=== PATIENT | female | born 1995 | race Caucasian/White ===

== ENCOUNTER 2020-10-24 14:35 | Day surgery (SDC) | payer OTHER ==
[2020-10-24] MEDS ORDERED: Glucagon,Human Recombinant 1 MG Vial IVPUSH ONE (14:51)
[2020-10-24] MEDS ORDERED: Ondansetron 4 MG/2 ML SDV IVPUSH ONE (14:51)
--- NOTE | 2020-10-24 15:14 | EDM.PDOC ---
ED HPI GENERAL MEDICAL PROBLEM - General Chief Complaint: ENT Problem Stated Complaint: DIFFICULTY SWALLOWING,CHEST PRESSURE Time Seen by Provider: 10/24/20 14:48 - History of Present Illness INITIAL COMMENTS - FREE TEXT/NARRATIVE: CHIEF COMPLAINT(S): Trouble swallowing HISTORY OF PRESENT ILLNESS: This is a 21-year-old woman with a past medical history of prior esophageal impaction who comes to the emergency department with a chief complaint of trouble swallowing. The patient states that approximately 23 hours ago while she was eating some roast she felt to get stuck in her throat. She states that prior to this in her teens she was able to pass these impactions with just swallowing water however it did not solve the problem this time. She states that she has tried [place], soda and white bread without any relief. She states that she is not able to swallow anything and everything keeps coming back up. She states that she she feels like it is closer to her stomach but she is experiencing some discomfort in the area. She denies any hematemesis, hemoptysis, shortness of breath or chest pain. Last known meal was approximately 23 hours ago. She denies any fevers or chills, abdominal pain. REVIEW OF SYSTEMS: Constitutional: Denies fever, chills. Eyes: Denies eye pain Ears, Nose, Mouth, & Throat: Positive for trouble swallowing. Denies earache, sore throat Cardiovascular: Denies chest pain Respiratory: Denies shortness of breath Gastrointestinal: Denies abdominal pain, nausea, vomiting, diarrhea, hematochezia. Genitourinary: Denies hematuria Skin:Denies a rash MSK: Denies joint pain Neurological: Denies blurred vision, numbness, tingling, weakness Psychiatric: Denies depression PAST MEDICAL HISTORY: As per history of present illness and as reviewed below otherwise noncontributory. SURGICAL HISTORY: As per history of present illness and as reviewed below otherwise noncontributory. SOCIAL HISTORY: As per history of present illness and as reviewed below otherwise noncontributory. FAMILY HISTORY: As per history of present illness and as reviewed below otherwise noncontributory. EXAMINATION OF ORGAN SYSTEMS/BODY AREAS: Constitutional: Blood pressure was 124/70, heart rate 80, respiratory 16 with an oxygen saturation 98% on room air. Temperature 36.4. General: Overall well-appearing woman who is in no acute distress Psychiatric: Appropriate mood and affect. Eyes: No scleral icterus or conjunctival erythema ENMT: Moist mucous membranes. No pharyngeal erythema uvula midline. No posterior pharyngeal swelling or erythema. The patient is spitting up mucus. Cardiovascular: Regular, rate, and rhythm. No gallops, murmurs, or rubs. Bilateral upper extremity pulses symmetric and intact. No peripheral edema. No JVD. Respiratory: Lungs clear to auscultation bilaterally. No wheezes, rales, or rhonchi. Gastrointestinal: Soft, non-tender, non-distended. Normoactive bowel sounds Genitourinary: No suprapubic tenderness Musculoskeletal: Normal range of motion. Skin: No lesions or abrasions. Neurological: Alert, GCS 15 MEDICAL DECISION MAKING AND COURSE IN THE ED WITH INTERPRETATION/REVIEW OF DIAGNOSTIC STUDIES: This is a 23-year-old and with a prior past medical history of food impaction who comes to the emergency department with food impaction and after approximately 23 hours who has tried multiple different modalities at home. At this time we will provide the patient with 1 mg of IV glucagon and Zofran. We will also trial some soda here and obtain a Covid swab and a test. I did contact Dr. Man given that the esophageal bolus has been there for approximately 23 hours and while awaiting hCG and Covid we will attempt conservative management. After attempting Coca-Cola the patient continued to spit up the Coca-Cola cola that we administered. She did not feel any better. The glucagon did not seem to pass the food bolus. Therefore I contacted Dr. Man who stated he would come into the emergency department to evaluate the patient. Laboratory: hCG is negative, Covid is negative Dr. Man came and evaluated the patient the patient will be taken to the operating room for an EGD DISPOSITION: The patient admitted to same-day surgery CONDITION: Fair PROCEDURES: None FINAL IMPRESSION(S)/DIAGNOSES: 1. Acute esophageal food bolus/impaction Hima Paz M.D. - Related Data Allergies Allergy/AdvReac Type Severity Reaction Status Date / Time No Known Allergies Allergy Verified 10/24/20 14:59 Home Meds: Home Meds . [No Known Home Meds] 10/24/20 [History] Past Medical History - Past Health History Medical/Surgical History: Denies Medical/Surgical History - Infectious Disease History Infectious Disease History: Reports: None Social & Family History - Family History Family Medical History: No Pertinent Family History - Caffeine Use Caffeine Use: Reports: None - Recreational Drug Use Recreational Drug Use: No ED ROS GENERAL - Review of Systems Review Of Systems: See Below ED EXAM, GENERAL - Physical Exam Exam: See Below Course - Vital Signs Last Recorded V/S: Last Vital Signs Temp 36.4 C 10/24/20 14:47 Pulse 86 10/24/20 15:35 Resp 18 10/24/20 15:35 BP 120/86 10/24/20 15:35 Pulse Ox 98 10/24/20 15:35 - Orders/Labs/Meds Orders: Active Orders 24 hr Category Date Time Status Admission Status [Patient Status] [ADT] Stat ADT 10/24/20 17:04 Active Verify Patient Consent Obtain [RC] ASDIRECTED Care 10/24/20 17:01 Active Labs: Laboratory Tests 10/24/20 10/24/20 Range/Units 14:45 15:02 HCG, Qual NEGATIVE (NEG) SARS-CoV-2 RNA (NEETA) NEGATIVE (NEGATIVE) Meds: Medications Discontinued Medications Generic Name Dose Route Start Last Admin Trade Name Freq PRN Reason Stop Dose Admin Glucagon 1 mg 10/24/20 14:51 10/24/20 15:10 Glucagon,Human Recombinant 1 Mg Vial IVPUSH 10/24/20 14:52 1 mg ONETIME ONE Administration Ondansetron HCl 4 mg 10/24/20 14:51 10/24/20 15:09 Ondansetron 4 Mg/2 Ml Sdv IVPUSH 10/24/20 14:52 4 mg ONETIME ONE Administration Departure - Departure Time of Disposition: 17:04 Disposition: Still A Patient 30 Condition: Fair Clinical Impression: Food impaction of esophagus - Discharge Information Referrals: PCP,None [Ordering Only Provider] - Forms: ED Department Discharge Sepsis Event Note (ED) - Evaluation Sepsis Screening Result: No Definite Risk - Focused Exam Vital Signs: Vital Signs Temp Pulse Resp BP Pulse Ox 10/24/20 15:35 86 18 120/86 98 10/24/20 14:47 36.4 C 80 16 124/70 98 - My Orders Last 24 Hours: My Active Orders 10/24/20 17:04 Admission Status [Patient Status] [ADT] Stat - Assessment/Plan Last 24 Hours: My Active Orders 10/24/20 17:04 Admission Status [Patient Status] [ADT] Stat
[2020-10-24] MEDS ORDERED: fentaNYL 50 MCG/ML SDV IVPUSH ONE (17:22)
--- NOTE | 2020-10-24 17:39 | PCM.PREANE ---
Preanesthetic Assessment - Procedure Proposed Procedure: EGD - Anesthesia/Transfusion/Family Hx Anesthesia History: Prior Anesthesia Without Reaction Family History of Anesthesia Reaction: No Intubation History: Intubation other than for Surgery in past - Review of Systems General: No Symptoms Pulmonary: Other (+ smoker Childhood Asthma) Cardiovascular: No Symptoms Gastrointestinal: Difficulty Swallowing (Food Bolus), Nausea, Other Neurological: No Symptoms Other: Reports: Anxiety - Physical Assessment NPO Status Date: 10/24/20 NPO Status Time: 14:00 Vital Signs: Last Vital Signs Temp 36.4 C 10/24/20 14:47 Pulse 86 10/24/20 15:35 Resp 18 10/24/20 15:35 BP 120/86 10/24/20 15:35 Pulse Ox 98 10/24/20 15:35 Height: 1.68 m Weight: 68.039 kg ASA Class: 2E Mental Status: Alert & Oriented x3 Airway Class: Mallampati = 2 Dentition: Reports: Normal Dentition Thyro-Mental Finger Breadths: 3 Mouth Opening Finger Breadths: 3 ROM/Head Extension: Full Lungs: Clear to Auscultation Cardiovascular: Regular Rate - Lab Values: Laboratory Last Values HCG, Qual NEGATIVE (NEG) 10/24/20 14:45 SARS-CoV-2 RNA (NEETA) NEGATIVE (NEGATIVE) 10/24/20 15:02 - Allergies Allergies/Adverse Reactions: Allergies Allergy/AdvReac Type Severity Reaction Status Date / Time No Known Allergies Allergy Verified 10/24/20 14:59 - Blood Blood Available: No Product(s) Available: None - Anesthesia Plan Pre-Op Medication Ordered: None - Acknowledgements Anesthesia Type Planned: General Anesthesia Pt an Appropriate Candidate for the Planned Anesthesia: Yes Alternatives and Risks of Anesthesia Discussed w Pt/Guardian: Yes Pt/Guardian Understands and Agrees with Anesthesia Plan: Yes Additional Comments: RSI with ET. discussed. ? answered. Permit signed. PreAnesthesia Questionnaire - Past Health History Medical/Surgical History: Denies Medical/Surgical History - Infectious Disease History Infectious Disease History: Reports: None - SUBSTANCE USE Tobacco Use Within Last Twelve Months: Cigarettes Recreational Drug Use History: No - HOME MEDS Home Medications: Home Meds . [No Known Home Meds] 10/24/20 [History] - CURRENT (IN HOUSE) MEDS Current Meds: Current Medications Discontinued Medications Fentanyl (Fentanyl 50 Mcg/Ml Sdv) 25 mcg IVPUSH ONETIME ONE Stop: 10/24/20 17:23 Glucagon (Glucagon,Human Recombinant 1 Mg Vial) 1 mg IVPUSH ONETIME ONE Stop: 10/24/20 14:52 Last Admin: 10/24/20 15:10 Dose: 1 mg Documented by: Ondansetron HCl (Ondansetron 4 Mg/2 Ml Sdv) 4 mg IVPUSH ONETIME ONE Stop: 10/24/20 14:52 Last Admin: 10/24/20 15:09 Dose: 4 mg Documented by:
--- NOTE | 2020-10-24 18:21 | CONS ---
DATE OF CONSULTATION: 10/24/2020 DATE OF : 1995 PRIMARY CARE PHYSICIAN: Suha Vivar MD HISTORY OF PRESENT ILLNESS: The patient is a pleasant 24-year-old female, who says that yesterday a little after 4 o'clock, she ate some beef roast. She states she felt like it was stuck. The patient has had a history of food getting stuck in the past. She says it always goes down with a little bit of water and fluids. She attempted this; however, she says nothing was going down. She says she is able to keep her saliva down though. She denies any vomiting or chest pain, although she does say she has a little discomfort in her lower epigastric area. Because it was not going down, she decided to come in to the hospital for further evaluation. ER did try some glucagon and some coke, which did not resolve the issue. The patient says when she was a teenager, this happened. She said she was followed up with EGD about 6 to 7 years ago. She said the EGD did not find anything other than some gastritis and she was told to take some Nexium. She normally takes Nexium. She denies any heartburn or indigestion. She says she has not had any problems with food getting stuck for the past 5 years. PAST MEDICAL HISTORY: The patient denies any. CURRENT HOME MEDICATIONS: The patient denies any, but she does have a control implant in her arm. ALLERGIES: No known drug allergies. SURGERIES: 1. [place] teeth extraction. 2. EGD. SOCIAL HISTORY: The patient smokes half a pack of cigarettes per day. She denies any illicit drug use. She denies alcohol use. FAMILY HISTORY: 1. Grandfather with diabetes. 2. Father with hypertension and also had issues with reflux. PHYSICAL EXAMINATION: GENERAL: The patient is lying comfortably in her ER bed. She is alert and oriented. In no acute distress. VITAL SIGNS: Temperature is 97.5, pulse is 86, blood pressure is 120/86, saturating 98% on room air. HEENT: Head is normocephalic, atraumatic. She is wearing a mask. LUNGS: Clear to auscultation bilaterally. No rhonchi or wheezing heard. HEART: Regular rate and rhythm. No murmur appreciated. ABDOMEN: Soft, nondistended. Some very minimal tenderness palpating the midepigastric area. No guarding or rebound. EXTREMITIES: No edema. NEUROLOGIC: Grossly, no motor or neurologic deficits noted. LABS: HCG is negative. COVID is negative. ASSESSMENT AND PLAN: The patient is a pleasant 24-year-old female who just a little over 24 hours ago says she had some roast that got stuck. She says it has not gone down. The patient is able to control her spit, but is able to keep even liquids down, just comes right back up. She has tried coke at home and in the ER and some glucagon with no resolution. I told the patient we could do an EGD. We went over the risks, goals, and alternatives to EGD. Risks include, but are not limited to perforation, bleeding, failure to remove the foreign body. I did go over with the patient we will often be able to push the food bolus into the stomach, although sometimes we have to extract it. Could also have complications of food going down the trachea although patient is often intubated during this procedure. Often patients go home the same day after procedure. The patient understands. I did go over with the patient that she needs to take it easy and stick with liquid and soft diet. I did go over that she may need a dilation in the future. The patient understands. All questions were answered. The patient wishes to be full code for procedure. COREY SEAY /[id number]
--- NOTE | 2020-10-24 18:44 | PCM.OPNOTE ---
- General Post-Op/Procedure Note Date of Surgery/Procedure: 10/24/20 Operative Procedure(s): EGD with removal of food bolus from esophagus Findings: Food bolus in the esophageus dictation number [id number] Pre Op Diagnosis: Food bolus in esophagus Post-Op Diagnosis: food bolus in the esophagus Anesthesia Technique: General ET Tube Primary Surgeon: Tejas Man Pathology: none Complications: None Condition: Stable
--- NOTE | 2020-10-24 19:05 | PCM.POSTAN ---
POST ANESTHESIA ASSESSMENT - MENTAL STATUS Mental Status: Alert - VITAL SIGNS Vital Signs: Last Vital Signs Temp 36.7 C 10/24/20 18:35 Pulse 86 10/24/20 18:50 Resp 18 10/24/20 18:50 BP 108/54 L 10/24/20 18:50 Pulse Ox 98 10/24/20 18:50 - RESPIRATORY Respiratory Status: Respiratory Rate WNL - CARDIOVASCULAR CV Status: Pulse Rate WNL - GASTROINTESTINAL GI Status: No Symptoms - PAIN Pain Score: 1 - POST OP HYDRATION Hydration Status: Adequate & Stable - OBSERVATIONS Free Text/Narrative:: Doing well. No problems post.
--- NOTE | 2020-10-24 19:07 | PCM48HPAN ---
Post Anesthesia Note - EVALUATION WITHIN 48HRS OF ANESTHETIC Vital Signs in Normal Range: Yes Patient Participated in Evaluation: Yes Respiratory Function Stable: Yes Airway Patent: Yes Cardiovascular Function Stable: Yes Hydration Status Stable: Yes Pain Control Satisfactory: Yes Nausea and Vomiting Control Satisfactory: Yes Mental Status Recovered: Yes Vital Signs: Last Vital Signs Temp 36.7 C 10/24/20 18:35 Pulse 86 10/24/20 18:50 Resp 18 10/24/20 18:50 BP 108/54 L 10/24/20 18:50 Pulse Ox 98 10/24/20 18:50 - COMMENTS/OBSERVATIONS Free Text/Narrative:: A&O x 3. Doing well. No problems at present. Adequate for discharge.
--- NOTE | 2020-10-24 22:34 | OR ---
SURGEON: MARÍA ELENA HIGUERA MD DATE OF PROCEDURE: 10/24/2020 PREOPERATIVE DIAGNOSIS: Food bolus in esophagus. POSTOPERATIVE DIAGNOSIS: Food bolus in esophagus. PROCEDURE PERFORMED: Esophagogastroduodenoscopy with removal of food bolus for esophagus. ENDOSCOPIST: María Elena Higuera MD ANESTHESIA: With the anesthesiologist. Extent of the esophagogastroduodenoscopy was to the duodenum. COMPLICATIONS: None. REASON FOR PROCEDURE: The patient is a pleasant 24-year-old female. She has had issues since a teenager with swallowing meats. She says they occasionally gets stuck, and she needs to take water to push it down. About 6 to 7 years ago, she had an EGD that was normal other than some inflammation around the GE junction. She denies any issues for the past 5 years of food getting stuck. Yesterday, a little after 4 o'clock, she says she ate some beef roast that got stuck. She has not been able to swallow any fluid since then. I did go over with the patient risks, goals, and alternatives of EGD. Risks include, but not limited to, bleeding, perforation, unable to remove the bolus. Also, this could reoccur. The patient understands and wished to proceed. OPERATION NARRATIVE: The patient was brought back to the OR. She was intubated with the ET tube by anesthesia team. After a time-out was performed, upper endoscope was advanced under direct visualization sedation without any difficulty in the upper GI tract. The anatomy and mucosa of the esophagus, GE junction, stomach, pylorus, and duodenum were inspected. She did have a bolus of food right about the GE junction. I was able to push this into the stomach fairly easily with the scope. Duodenum was then intubated. The scope was then brought up. I did both retro and antegrade views of the stomach. Some minimal gastritis and the food bolus were there. The scope was brought to the level of the GE junction. GE junction was approximately 37 cm from the incisors. The GE junction was a little edematous bolus, but I do not see any obvious stricture or masses. no perforation seen. The scope was brought back into the stomach. Stomach was deinsufflated. Scope was brought through the esophagus. Esophagus appeared normal. Scope was completely removed, and procedure was terminated. ENDOSCOPIC DIAGNOSIS: Food bolus in esophagus. RECOMMENDATIONS: The patient should follow up. She may need a followup EGD or swallow to check for any stricturing. The patient should stay on a liquid soft diet for the next several days. COREY SEAY /[id number]
== END 2020-10-24 20:05 | disposition home or self-care (01) ==
LOC: MW.ED 14:35 → MW.SDS 17:04 → MW.ICU 19:11 → MW.SDS 20:05
PROVIDERS: ATTEND Surgery
DX: T18.128A Food in esophagus causing other injury, initial encounter (principal); K29.70 Gastritis, unspecified, without bleeding; F17.210 Nicotine dependence, cigarettes, uncomplicated; Z01.812 Encounter for preprocedural laboratory examination; Z20.822 Contact with and (suspected) exposure to COVID-19
CPT/HCPCS: 36415; 84703; 96374; 96375; 99283; 99284-25; J1610; J2405; J3010; U0002